=== PATIENT | female | born 1990 | race Caucasian/White ===

== ENCOUNTER 2019-10-16 10:00 | Emergency (ER) | payer OTHER ==
[2019-10-16 10:07] VITALS: BP 149/89
--- NOTE | 2019-10-16 10:29 | ED Physician Documentation ---
History of Present Illness - Stated complaint Stated Complaint: SORE THROAT - Chief complaint Chief Complaint: Heent - History obtained from History obtained from: Patient - History of Present Illness Timing: How many days ago (4) Pain level max: 5 Pain level now: 5 - Additonal information Additional information: 28-year-old female with fevers and sore throat for the past 4 days. Exudates on tonsils. Worse with swallowing and better with rest. No vomiting. Denies any possibility of . She is not breast-feeding. No rhinorrhea or congestion. No cough. No vomiting. No abdominal pain. Review of Systems Constitutional: reports: Fever, Chills Throat: reports: Sore throat Cardiac: denies: Chest pain / pressure Respiratory: denies: Cough GI: denies: Vomiting : denies: Now EGA Skin: denies: Rash PD PAST MEDICAL HISTORY - Past Medical History Past Medical History: No - Past Surgical History Past Surgical History: No - Present Medications Home Medications: Ambulatory Orders Medication Instructions Recorded Confirmed Ibuprofen [Motrin] 800 mg PO Q8H PRN #30 tablet 10/16/19 Penicillin V Potassium 500 mg PO Q6HR #40 tablet 10/16/19 - Allergies Allergies/Adverse Reactions: Allergies Allergy/AdvReac Type Severity Reaction Status Date / Time No Known Drug Allergies Allergy Verified 10/16/19 10:07 - Living Situation Living Arrangement: reports: At home - Social History Does the pt smoke?: No Smoking Status: Never smoker PD ED PE NORMAL - Vitals Vital signs reviewed: Yes - General General: Alert and oriented X 3, No acute distress, Well developed/nourished - HEENT HEENT: PERRL, Moist mucous membranes, Other (Posterior oropharyngeal erythema and tonsillar exudates. Uvula midline. Normal phonation. No trismus.) - Neck Neck: Supple, no meningeal sign, Other (Shotty anterior lymphadenopathy) - Cardiac Cardiac: RRR, Strong equal pulses - Respiratory Respiratory: No respiratory distress, Clear bilaterally - Abdomen Abdomen: Soft, Non tender, Non distended - Derm Derm: Warm and dry, No rash - Neuro Neuro: Alert and oriented X 3 - Psych Psych: Normal mood, Normal affect Results - Vitals Vitals: Vital Signs - 24 hr 10/16/19 10:05 Temperature 37 C Heart Rate 99 Respiratory 18 Rate Blood Pressure 149/89 H O2 Saturation 97 Oxygen O2 Source Room air - Labs Labs: Laboratory Tests 10/16/19 10:11 Group A Strep Rapid POSITIVE H PD MEDICAL DECISION MAKING - ED course Complexity details: reviewed results, re-evaluated patient, considered [place] rodriguez, d/w patient ED course: Patient with what appears to be strep pharyngitis. She is well-appearing, nontoxic. Afebrile. We will treat with antibiotics and follow-up with her doctor for further care. No evidence of peritonsillar or retropharyngeal abscess. Patient counseled regarding signs and symptoms for which I believe and urgent re-evaluation would be necessary. Patient with good understanding of and agreement to plan and is comfortable going home at this time This document was made in part using voice recognition software. While efforts are made to proofread this document, sound alike and grammatical errors may occur. Departure - Departure Disposition: 01 Home, Self Care Clinical Impression: Strep pharyngitis Condition: Good Instructions: ED Strep Pharyngitis Conf Follow-Up: SUMAN WHEELER [Primary Care Provider] - As Needed Prescriptions: Penicillin V Potassium 500 mg PO Q6HR #40 tablet Ibuprofen [Motrin] 800 mg PO Q8H PRN #30 tablet PRN Reason: PAIN &/OR FEVER Comments: Take all antibiotics until gone. Return if you worsen. Follow-up with your doctor for further care.
== END 2019-10-16 10:32 | disposition home or self-care (01) ==
LOC: ED 10:00
DX: J02.0 Streptococcal pharyngitis (principal)
CPT/HCPCS: 87430; 99283